=== PATIENT | male | born 2000 | race Caucasian/White ===

== ENCOUNTER 2022-02-12 10:28 | Emergency (ER) | payer BC ==
[2022-02-12 10:39] VITALS: BP 126/67
[2022-02-12] MEDS ORDERED: methocarbamoL 500 MG TABLET PO STA (11:13)
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
== END 2022-02-12 12:10 | disposition home or self-care (01) ==
LOC: ED 10:28
DX: S13.9XXA Sprain of joints and ligaments of unspecified parts of neck, initial encounter (principal); X58.XXXA Exposure to other specified factors, initial encounter; Y93.17 Activity, water skiing and wake boarding
CPT/HCPCS: 72125; 99284; A9270